=== PATIENT | female | born 1990 | race Caucasian/White ===

== ENCOUNTER → 2020-07-14 07:50 | Outpatient (CLI) | payer OTHER, SELFPAY ==
[2020-07-04 15:03] VITALS: BMI 30.1
[2020-07-14 09:30] LABS: Prolactin 16.9 ng/mL; Thyroid Stim Hormone (TSH) 1.12 uIU/mL (0.358-3.74)
[2020-07-18 12:08] LABS: Testosterone, % Free 2.05 % (0.50-2.80); Testosterone, Free 0.41 ng/dL (0.10-0.85)
[2020-07-18 13:30] LABS: Testosterone, Total 20 ng/dL (13-71)
== END ==
PROVIDERS: PCP Student in an Organized Health Care Education/Training Program; Referring Provider Obstetrics & Gynecology; Visit Provider Obstetrics & Gynecology
DX: N92.6 Irregular menstruation, unspecified (principal); Z83.2 Family history of diseases of the blood and blood-forming organs and certain disorders involving the immune mechanism
CPT/HCPCS: 36415; 82627; 84146; 84402; 84403; 84443; 82626

== ENCOUNTER → 2020-07-16 15:32 | Outpatient (CLI) | payer OTHER, SELFPAY ==
[2020-07-04 15:03] VITALS: BMI 30.1
== END ==
PROVIDERS: PCP Student in an Organized Health Care Education/Training Program; Referring Provider Obstetrics & Gynecology; Visit Provider Obstetrics & Gynecology
DX: N92.6 Irregular menstruation, unspecified (principal)
CPT/HCPCS: 36415

== ENCOUNTER → 2020-09-11 13:19 | Outpatient (CLI) | payer OTHER, SELFPAY ==
[2020-07-04 15:03] VITALS: BMI 30.1
[2020-09-11 13:50] LABS: hCG Titer Quant., Serum 11 mIU/mL (1-3)
== END ==
PROVIDERS: PCP Student in an Organized Health Care Education/Training Program; Referring Provider Obstetrics & Gynecology; Visit Provider Obstetrics & Gynecology
DX: N91.2 Amenorrhea, unspecified (principal)
CPT/HCPCS: 36415; 84702

== ENCOUNTER → 2020-09-13 09:39 | Outpatient (CLI) | payer OTHER, SELFPAY ==
[2020-07-04 15:03] VITALS: BMI 30.1
[2020-09-13 10:20] LABS: hCG Titer Quant., Serum 3 mIU/mL (1-3)
== END ==
PROVIDERS: PCP Student in an Organized Health Care Education/Training Program; Referring Provider Obstetrics & Gynecology; Visit Provider Obstetrics & Gynecology
DX: N91.2 Amenorrhea, unspecified (principal)
CPT/HCPCS: 36415; 84702

== ENCOUNTER → 2020-12-03 13:12 | Outpatient (CLI) | payer OTHER, SELFPAY ==
[2020-12-03 13:49] LABS: hCG Titer Quant., Serum < 1 mIU/mL (1-3)
== END ==
PROVIDERS: PCP Student in an Organized Health Care Education/Training Program; Referring Provider Obstetrics & Gynecology; Visit Provider Obstetrics & Gynecology
DX: N91.2 Amenorrhea, unspecified (principal)
CPT/HCPCS: 36415; 84702

== ENCOUNTER → 2021-01-07 12:21 | Outpatient (CLI) | payer OTHER, SELFPAY ==
--- NOTE | 2021-01-07 12:30 | RAD_ITS ---
STUDY: HYSTEROSALPINGOGRAM. REASON FOR EXAM: Female, 30 years old. HSG FLUOROSCOPY TIME (if supplied): ( 18 seconds ) minutes/seconds. 3 images were obtained. 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 Imaging was provided. COMPARISON: None. FINDINGS: The uterus is unremarkable. Both fallopian tubes are patent with spill. RAD/Salpingogram IMPRESSION: Unremarkable hysterosalpingogram. Electronically Signed: Raj Best MD at 13:55 EST , Service support ,
--- NOTE | 2021-01-07 17:21 | OP.PCM_ITS ---
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 Speculum was placed in the vagina and the cervix prepped with Betadine and the HSG catheter was easily introduced into the uterus and speculum removed. Radiologist was brought in and while pushing radiopaque dye into the uterus via the HSG catheter the radiologist took multiple images and views and confirmed bilateral tubal patency seen. No gross uterine filling defects or abnormalities were seen. All instruments removed from the vagina and the uterus without complication. some bleeding was encountered at tenaculua site treated with pressure. Patient tolerated the procedure well. Procedures Urinary/Genital 52xxx-59xxx: [id number] HSG/SIS
== END ==
PROVIDERS: PCP Student in an Organized Health Care Education/Training Program; Referring Provider Obstetrics & Gynecology; Visit Provider Obstetrics & Gynecology
DX: Q51.3 Bicornate uterus (principal); Z87.59 Personal history of other complications of pregnancy, childbirth and the puerperium
CPT/HCPCS: 58340; 74740

== ENCOUNTER → 2021-01-16 10:22 | Outpatient (CLI) | payer OTHER, SELFPAY ==
[2021-01-18 16:08] LABS: Dilute Prothrombin Time (dPT) 40.1 sec (0.0-47.6); Dilute Russell Viper Venom 45.4 sec (0.0-47.0); PTT-LA 35.1 sec (0.0-51.9); Thrombin Time 17.8 sec (0.0-23.0); dPT Confirm Ratio 1.08 Ratio (0.00-1.34)
[2021-01-18 22:13] LABS: Anti-Cardiolipin Ab, IgA, Qn < 9 APL U/mL (0-11); Anti-Cardiolipin Ab, IgG, Qn < 9 GPL U/mL (0-14); Anti-Cardiolipin Ab, IgM, Qn 24 MPL U/mL (0-12); Beta-2-Glycoprotein I IgA <9 (0-25); Beta-2-Glycoprotein I IgG <9 (0-20); Beta-2-Glycoprotein I IgM 15 (0-32)
[2021-01-18 22:17] LABS: Interpretation Comment: (.)
== END ==
PROVIDERS: PCP Student in an Organized Health Care Education/Training Program; Referring Provider Obstetrics & Gynecology; Visit Provider Obstetrics & Gynecology
DX: N96 Recurrent pregnancy loss (principal)
CPT/HCPCS: 36415; 86146; 86147

== ENCOUNTER 2021-04-01 09:15 | Outpatient (CLI) | payer OTHER, SELFPAY ==
[2021-04-01 10:33] LABS: T4 Free Direct 0.82 ng/dL (0.76-1.46); Thyroid Stim Hormone (TSH) 1.08 uIU/mL (0.358-3.74)
[2021-04-03 17:07] LABS: Dilute Prothrombin Time (dPT) 34.5 sec (0.0-47.6); Dilute Russell Viper Venom 35.2 sec (0.0-47.0); PTT-LA 31.2 sec (0.0-51.9); Thrombin Time 18.9 sec (0.0-23.0); dPT Confirm Ratio 0.83 Ratio (0.00-1.34)
[2021-04-03 18:19] LABS: Anti-Cardiolipin Ab, IgA, Qn < 9 APL U/mL (0-11); Anti-Cardiolipin Ab, IgG, Qn < 9 GPL U/mL (0-14); Anti-Cardiolipin Ab, IgM, Qn 23 MPL U/mL (0-12); Beta-2-Glycoprotein I IgA <9 (0-25); Beta-2-Glycoprotein I IgG <9 (0-20); Beta-2-Glycoprotein I IgM 15 (0-32); Interpretation Comment: (.)
== END 2021-04-01 23:59 | disposition home or self-care (01) ==
LOC: PAVLAB 09:16
PROVIDERS: PCP Student in an Organized Health Care Education/Training Program; Referring Provider Obstetrics & Gynecology; Visit Provider Obstetrics & Gynecology
DX: Z31.69 Encounter for other general counseling and advice on procreation (principal); N96 Recurrent pregnancy loss
CPT/HCPCS: 36415; 84439; 84443; 86146; 86147

== ENCOUNTER 2022-03-04 11:21 | Day surgery (SDC) | payer BC, SELFPAY ==
--- NOTE | 2022-03-03 17:02 | PCM.HP.BLA ---
History and Physical Date of Admission: 03/04/22 [facility] [address] [place] [address] OFFICE VISIT Date of Service:? 01/30/22 MR#: [id number] Acct: [id number] Name:MARK CRUZ Rep #: [id number] : 1990 ? ? Provider: Dr. Leonor Mendez MD Age/Sex:? 31/F ? ? [place] [facility] [place] Signed Intake Vital Signs ? 01/30/2213:51 01/30/2213:51 Height 5 ft 5 in 5 ft 5 in Weight: 181 lb ? BMI 30.1 ? BP 137/88 H ? 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: No Is patient in pain?: No Allergies egg Allergy (Intermediate, Verified 07/04/20 14:56) PT UNSURE OF REACTION Medications aspirin 81 mg tablet,delayed release (Adult Low Dose Aspirin) 81 mg PO DAILY 07/04/20 [History Confirmed 01/30/22] nifedipine 60 mg tablet,extended release 60 mg PO DAILY 07/04/20 [History Confirmed 01/30/22] enoxaparin 40 mg/0.4 mL subcutaneous syringe (Lovenox) 40 mg (0.4 mL) subcut QDAY 7 days #2.8 mL 01/30/22 [Rx Confirmed 01/30/22] Is last menstrual period known: No Post menopausal: No Patient : No : No [facility] Medical History? Anti-cardiolipin antibody syndrome Bicornuate uterus Factor V Leiden History of ectopic HTN (hypertension) Surgical History? S/P appendectomy S/P Family History? Mother HypertensionFather Factor V LeidenAunt Factor V Leiden Social History? Smoking Status:? Never smoker alcohol intake:? current details:? occasionally substance use type:? does not use caffeine:? Yes what type of physical activity do you participate in:? walking, running and aerobics frequency:? 3-4 times per week seatbelt use:? always do you feel safe at home:? Yes additional social history:? - Velasquez HPI consult tubal Details: MARK LEHMAN is a 31 year old who presents for sterilization consult, desires sterilization. ? she and her have been discussing and do not want to conceive anymore.? she has two blood clotting disorders and isn't a candidate for hormones. Female Reproductive History Cycle Length: 21-35 Bleeding Duration: 5 Questions: metorrhagia: No, sexually active: Yes, dyspareunia: No and PCB: No Menopausal Symptoms: No hot flashes, No night sweats, No weight change, No mood changes, No difficulty concentrating, No sleep problems and No change in libido History ? ? ? 4 ? Elective abortions ? Hx Para ? ? ? 1 ? Spontaneous abortions ? ? ? 2 Hx # Term Pregnancies ? Ectopic pregnancies ? ? ? 1 Hx # Pregnancies ? Multiple births ? # of living children ? ? ? 1 Past Pregnancies Del. Date Name GA/Weeks Outcome Route Bth Weight [facility] live - full term 6lbs Male ? spinal [place] [facility] Dr. Joshua Roberto Delivery Date: 06/04/12? Last Updated by: Phylicia Eid ? ? ? Breech ROS Const Constitutional: Denies fatigue, night sweats, weight gain or weight loss ENT ENT: Reports system reviewed and no additional complaints, except as documented Cardio Card: Denies chest pain Resp Resp: Denies cough or dyspnea GI GI: Reports as per HPI; Denies constipation, nausea or vomiting : Reports as per HPI; Denies hot flashes, nipple discharge, vaginal discharge, vaginal dryness, vaginal odor or vaginal pruritus Musc Musc: Denies arthralgias, back pain or muscle weakness Skin Skin/Breast: Denies alopecia, change in hair, dry skin, breast mass, breast pain, breast skin changes or nipple discharge Neuro Neuro: Reports system reviewed and no additional complaints, except as documented Psych Psych: Reports system reviewed and no additional complaints, except as documented; Denies change in libido or difficulty concentrating Endo Endo: Denies cold intolerance, excessive sweating, heat intolerance or polydipsia Rob/Lymph Hematologic/Lymphatic: Denies easy bleeding, Denies easy bruising and Denies lymphadenopathy Exam Const General: cooperative, healthy appearing, comfortable, no acute distress and well developed Orientation: alert [facility] Head: normal to inspection and normocephalic Ears: hearing grossly normal bilaterally and external ears normal Nose: external nose normal and nares normal Face and sinus: normal facial exam Neck Neck: normal visual inspection and no lymphadenopathy Thyroid: thyroid normal Chest Chest palpation & inspection: normal inspection of the chest Resp Effort & Inspection: normal respiratory effort Auscultation: clear to auscultation bilaterally Cardio Rate: regular rate Rhythm: regular rhythm Heart Sounds: S1 normal and S2 normal GI Inspection: normal to inspection and non-distended Palpation: soft and no hepatosplenomegaly Musc Other: gross motor intact no deficits, full bilateral strength Skin General: no rashes or lesions noted Neuro General: patient alert, patient awake, moves all extremities and no focal motor deficits Motor: muscle tone normal throughout Extrem General: normal to inspection and no pedal edema Psych Appearance: grossly normal Mental Status: mental status grossly normal Affect: normal affect Speech and Movement: speech and movement normal Coding Level of Care Code Off vis,est,level 4 Diagnoses Sterilization? Z30.2 Assessment and Plan Assessment and Plan (1) Sterilization: ?Status:?Acute ?Comment: plan lap bs. plan 7 days postop lovenox prophylaxis ? ? ? Medications: New enoxaparin (Lovenox) 40 mg (0.4 mL) subcut QDAY 7 days 2.8 mL 0RF ? ? Plan After discussing the patient's diagnosis and treatment plan options, patient wishes to proceed with surgical management.? I have discussed with the patient the risks, benefits, and alternatives of the procedure which include but are not limited to risks of anesthesia, bleeding, infection, possible damage to bowel, bladder, or surrounding vasculature which could lead to additional surgery to evaluate any complications.? Patient agrees to procedure and wishes to proceed.? ACOG/uptodate references given for additional information regarding procedure.? UPDATE- I have seen the patient and performed any clinically relevant updates to the history and physical exam. Leonor Mendez MD
[2022-03-04] VITALS (11 sets, daily range): BP systolic 111–143; BP diastolic 74–104; PULSE 71–92; RESP 16; TEMP 36.3–37.3; O2SAT 94–100; BMI 31.3
--- NOTE | 2022-03-04 11:54 | OP.PCM_ITS ---
Problems Associated Problem List Diagnoses (1) Sterilization: (2) Anti-cardiolipin antibody syndrome: Report of Operation Date of Procedure: 03/04/22 Pre-Operative Diagnosis: see problem list Post-Operative Diagnosis: same Surgery/Procedure Performed:: laparoscopic bilateral salpingectomy Description of Surgical Findings:: nl uterus tubes ovaries Type of Anesthesia: General and Local Specimen's removed: tubes Drains: none Estimated Blood Loss (mL): 50 Fluids Replaced: crystalloid Description of Procedure: Patient was taken in the operating room and was placed under general anesthesia was prepped and draped in normal sterile fashion in the dorsal lithotomy position. Bladder was drained of clear urine and SCDs were on preoperatively. Uterus was sounded and a uterine manipulator was placed after dilating. Atte ntion was then paid to the abdominal portion of the procedure and the umbilicus was elevated with towel clamps and injected with Marcaine and after a 5 mm incision was made and the Veress needle was entered into the abdomen confirmed to be intra-abdominal with a low opening pressure of less than 5 mmHg. Abdomen was insufflated with CO2 gas and a 5 mm optical trocar was placed under direct visualization. A 5 mm port suprapubically was placed under direct visualization. Uterus was well visualized and bilateral fallopian tubes identified and bilateral tubes were elevated and transecting across the mesosalpinx and the attachment to the uterine corpus on the right side, and then due to scar tissue on the left tube, a LLQ 5 mm port was placed under direct visualization to help with retraction and the left tube was removed in its entirety. Excellent hemostasis was noted. Fallopian tubes were removed through the lower port site without complication. Liver and upper abdomen were visualiz ed notably within normal limits and no other gross abnormalities were seen in the abdomen. All instruments removed from the abdomen after gas was desufflated. Port sites were closed with 3-0 Monocryl Steri's and op sites were applied. All instruments removed from the vagina and patient was awoken and taken recovery in stable condition. Grafts/Implants Used: none Complications none Admit VTE Documentation VTE Present on Admission: No VTE Mechan Device Prophylaxis: SCD's Multi Select Codes Urinary/Genital Urinary/Genital CPT Codes: 80825 Laproscopic BS/O
--- NOTE | 2022-03-04 11:54 | DCINST_ITS ---
Discharge Instructions Diet Discharge Diet: No restrictions Activity Discharge Activity: Return to Normal Activity, May Drive (when pain free) and May Shower May resume sexual activity in: 1 week Weight Bearing Status: Full weight bearing Lifting Restrictions: 30 lbs for 2 weeks Dressing / Incision Call your doctor if your incision/area has: Continuous Slow Oozing, Sudden Increased Bleeding, Increased Pain/ Swelling, Increased Redness and Foul Smelling Discharge Call your doctor if you observe: Fever of 101 or Higher, Using more than 1 pad per hour, Shortness of breath, Chest pain and Uncontrolled pain Suture Line Care: Avoid Pulling/Pushing and Avoid Pinching/Bending Remove Dressing in: 1 week (if present) Cleanse incision/area with: Soap & Water and Keep Dressing Clean & Dry Follow Up Care Please Follow Up With: Leonor Mendez MD When: Call to make an appointment with your doctor for a postop visit in 2 weeks Test Results: Test results from this visit will be discussed in further detail at your follow- up appointment, if applicable. Discharge Plan Admission Attending Provider: Leonor Mendez Primary Care Provider: Moreno Valladares Discharge Orders/Prescriptions Prescriptions: New enoxaparin [Lovenox] 40 mg/0.4 mL syringe 40 mg subcut DAILY 7 Days Qty: 2.8 1RF oxycodone-acetaminophen [Percocet] 5-325 mg tablet 1 tab PO Q6H PRN (Reason: pain) 7 Days Qty: 20 0RF naproxen [naproxen] 500 mg tablet 500 mg PO BID PRN PRN (Reason: Pain) Qty: 30 1RF No Action nifedipine 60 mg tablet extended release 60 mg PO DAILY aspirin [Adult Low Dose Aspirin] 81 mg tablet,delayed release (DR/EC) 81 mg PO DAILY Referrals / Follow Up: Moreno Valladares DO [Primary Care Provider] - Disposition Disposition (needs filled in before D/C Order can be placed): Home, Self Care
[2022-03-04 12:04] LABS: Internal QC Validated? YES +Cl - CLEAR BKGD; Pregnancy, Urine Negative Negative
[2022-03-04] MEDS: Enoxaparin 40 MG/0.4 ML Syringe SC (12:04)
[2022-03-04] MEDS: Lactated Ringers 1,000 ML 15 ML IV (12:04)
[2022-03-04 12:10] LABS: Absolute Lymphocyte Count 2.74 X10^3/uL (0.83-4.51); Absolute Neutrophil Count 4.4 X10^3/uL (2.0-7.7); Basophil# 0.04 X10^3/uL; Basophil% 0.5 % (0-1); Eosinophil# 0.09 X10^3/uL; Eosinophils% 1.2 % (0-5); Hematocrit 42.7 % (37-47); Hemoglobin 14.5 g/dL (12.0-15.0); Lymphocyte # 2.74 X10^3/ul (0.83-4.51); Lymphocyte % 35.4 % (19-41); Mean Corpuscular Hgb 31.4 pg (27.0-32.0); Mean Corpuscular Volume 92.4 fL (81-99); Mean Platelet Vol. 10.7 fl (6.2-12.0); Monocyte# 0.47 X10^3/uL; Monocyte% 6.1 % (0-10); NRBC Flagged by Analyzer 0 % (0-5); Neutrophil # 4.37 X10^3/uL (2.7-7.7); Neutrophil % 56.5 % (47-70); Platelet Count 318 K/mm3 (150-450); RBC Distribution Width CV 11.6 % (11.6-14.6); Red Blood Count 4.62 M/mm3 (4.2-5.4); White Blood Count 7.7 K/mm3 (4.4-11.0)
--- NOTE | 2022-03-04 13:10 | FALS_PTH ---
PATIENT: MARK GONG LOC: [facility] [place] U#:[id number] AGE/SX: 31/F ROOM: RE03/04/[address]: Dr. Leonor Mendez MD : 1990 BED: DIS: 03/04/2022 SPEC #: [id number] RECD: 03/04/22 16:01 STATUS: MALCOLM REShreyas #: [id number] JIMMY: 03/04/22 13:[address]: Leonor Mendez DEPT: SURGICAL PATHOLOGY RECD BY: Tiffani Mckeon ENTERED: 03/05/22 07:21 SP TYPE: FALL TUBES OTHR DR: Dr. Moreno Valladares, DO Tissues: Fallopian tube Procedures: Surgery Specimen Level II HEADER OPERATION: Laparoscopic salpingectomy PRE-OP DIAGNOSIS: Sterilization TISSUE SUBMITTED: Bilateral fallopian tubes MICROSCOPIC DIAGNOSIS Bilateral fallopian tubes, salpingectomy: Bilateral fallopian tubes, no pathologic diagnosis. MARTHA:abhishek 03/06/2022 MICROSCOPIC DESCRIPTION Slides are reviewed. GROSS DESCRIPTION Received in fixative is one container labeled with the patient's name and designated bilateral fallopian tubes. The specimen consists of two fallopian tubes received in three fragments with an average length of 6 cm and has an average diameter of 0.7 cm. Both fallopian tubes have normal fimbriated ends. No mass lesions are identified. Electrical Appliance Mechanic sections are submitted in two cassettes with each cassette containing one fallopian tube. / AM:abhishek 03/05/2022 TC:4 [facility]: [id number] x2
== END 2022-03-04 17:51 | disposition home or self-care (01) ==
LOC: SDC 11:24 → AC 11:26
PROVIDERS: PCP Student in an Organized Health Care Education/Training Program; Referring Provider Obstetrics & Gynecology; Visit Provider Obstetrics & Gynecology
PROC: (CPT 58661; principal; 2022-03-04 12:55)
DX: Z30.2 Encounter for sterilization (principal); D68.61 Antiphospholipid syndrome; I10 Essential (primary) hypertension; Z90.49 Acquired absence of other specified parts of digestive tract; Z79.82 Long term (current) use of aspirin; Z79.899 Other long term (current) drug therapy
CPT/HCPCS: 58661; 00840; 81025; 85025; 86850; 86900; 86901; 88302; J7120; J2405

== ENCOUNTER → 2023-04-22 | Outpatient (CLI) | payer BC, SELFPAY ==
[2023-04-22 17:50] LABS: HIV - WCH Non-Reactive (Nonreactive); Hepatitis C Antibody Non-Reactive (Nonreactive); Syphilis Antibodies Non-reactive
[2023-04-25 15:09] LABS: HSV Culture Without Typing Positive (.)
== END | disposition home or self-care (01) ==
PROVIDERS: PCP Student in an Organized Health Care Education/Training Program; Referring Provider Obstetrics & Gynecology; Visit Provider Obstetrics & Gynecology
DX: Z11.3 Encounter for screening for infections with a predominantly sexual mode of transmission (principal)
CPT/HCPCS: 36415; 86703; 86780; 86803; 87255

== ENCOUNTER → 2023-09-15 | Outpatient (CLI) | payer OTHER, SELFPAY ==
[2023-09-17 05:07] LABS: HSV 1 IgG < 0.91 index (0.00-0.90); HSV 2 IgG < 0.91 index (0.00-0.90)
== END | disposition home or self-care (01) ==
LOC: PAVLAB 13:33
PROVIDERS: PCP Student in an Organized Health Care Education/Training Program; Referring Provider Nurse Practitioner Women's Health; Visit Provider Nurse Practitioner Women's Health
DX: A60.04 Herpesviral vulvovaginitis (principal)
CPT/HCPCS: 36415; 86695; 86696

== ENCOUNTER → 2024-04-19 | Outpatient (CLI) | payer OTHER, SELFPAY | END | disposition home or self-care (01) | PROVIDERS: PCP Student in an Organized Health Care Education/Training Program; Referring Provider Nurse Practitioner Women's Health; Visit Provider Nurse Practitioner Women's Health | DX: A60.04 Herpesviral vulvovaginitis (principal) | CPT/HCPCS: 36415; 86695; 86696 ==

== ENCOUNTER → 2024-11-23 | Outpatient (CLI) | payer OTHER, SELFPAY ==
[2024-11-25 10:08] LABS: Chlamydia By Nucleic Acid AMP Negative (Negative); Gonococcus By Nucleic Acid AMP Negative (Negative)
[2024-11-28 11:08] LABS: HPV APTIMA, High Risk Negative (Negative)
== END | disposition home or self-care (01) ==
LOC: LABSPEC 11:56
PROVIDERS: PCP Student in an Organized Health Care Education/Training Program; Visit Provider Nurse Practitioner Women's Health
DX: Z12.4 Encounter for screening for malignant neoplasm of cervix (principal); Z11.3 Encounter for screening for infections with a predominantly sexual mode of transmission
CPT/HCPCS: 87491; 87591; 87624; 88175; G0145